=== PATIENT | female | born 1970 | race Caucasian/White ===

== ENCOUNTER → 2020-05-20 | Outpatient (CLI) | payer MEDICARE ==
[~2020-05-20] MED LIST: PREDNISONE20 MG PO
== END ==
LOC: EXRD 15:37
DX: J44.9 Chronic obstructive pulmonary disease, unspecified (principal); J98.11 Atelectasis
CPT/HCPCS: 71046

== ENCOUNTER 2020-11-30 01:39 | Emergency (ER) | payer MEDICARE ==
[2020-11-30 02:12] LABS: HEMOGLOBIN 14.5 gm/dl (12.3-15.3); RED BLOOD COUNT 4.42 M/UL (4.00-5.10); WHITE BLOOD COUNT 17.8 K/UL (4.5-11.0)
[2020-11-30 02:39] LABS: BUN/CREATININE RATIO 9 (0-10)
[2020-11-30] MEDS ORDERED: ZOFRAN ODT 4 MG4 MG PO (04:42)
[2020-11-30] MEDS ORDERED: LODINE CAP 300300 MG PO (04:42)
[2020-11-30] MEDS ORDERED: HYDROCODON-ACE1 EAC4 PO (05:08)
== END 2020-11-30 05:23 | disposition home or self-care (01) ==
LOC: ER1 01:39
PROVIDERS: Physician Assistant
DX: K85.90 Acute pancreatitis without necrosis or infection, unspecified (principal); J44.9 Chronic obstructive pulmonary disease, unspecified; E78.5 Hyperlipidemia, unspecified; I10 Essential (primary) hypertension; E11.40 Type 2 diabetes mellitus with diabetic neuropathy, unspecified; Z79.4 Long term (current) use of insulin; M06.9 Rheumatoid arthritis, unspecified
CPT/HCPCS: 80053; 81001; 82150; 82550; 82553; 83605; 83690; 84484; 84703; 85025; 93005; 96374; 96375; 99285; J1885; J2405; Q9967

== ENCOUNTER 2021-11-28 18:43 | Inpatient (IN) | payer MEDICARE ==
[~2021-11-28] VITALS: Ht 162.6 cm; Wt 98.0 kg
[~2021-11-28 18:43] MED LIST changes: +HYDROCODON-ACE1 EAC4 PO; +LODINE CAP 300300 MG PO; +ZOFRAN ODT 4 MG4 MG PO
[2021-11-28 20:30] LABS: HEMOGLOBIN 13.5 gm/dl (12.3-15.3); RED BLOOD COUNT 4.13 M/UL (4.00-5.10); WHITE BLOOD COUNT 18.2 K/UL (4.5-11.0)
[2021-11-28 20:55] LABS: BUN/CREATININE RATIO 5 (0-10)
[2021-11-29 02:54] LABS: HEMOGLOBIN 13.7 gm/dl (12.3-15.3); RED BLOOD COUNT 4.22 M/UL (4.00-5.10); WHITE BLOOD COUNT 16.5 K/UL (4.5-11.0)
[2021-11-29 03:08] LABS: BUN/CREATININE RATIO 5 (0-10)
[2021-11-29] MEDS ORDERED: ACETAMINOPHEN-1 EAC1 PO (10:13)
[2021-11-29] MEDS ORDERED: TIZANIDINE HCL4 MG PO (10:13)
[2021-11-29] MEDS ORDERED: DIAZEPAM5 MG PO ×2 (10:14→10:15)
[2021-11-29] MEDS ORDERED: CREON DR 24,001 EACH PO (10:16)
[2021-11-29] MEDS ORDERED: ESCITALOPRAM OX20 MG PO (10:16)
[2021-11-29] MEDS ORDERED: MOTEGRITY2 MG PO (10:16)
[2021-11-29] MEDS ORDERED: QUETIAPINE FUM400 MG PO (10:17)
[2021-11-29] MEDS ORDERED: CLOPIDOGREL75 MG PO (10:18)
[2021-11-29] MEDS ORDERED: PROVENTIL HFA6.7 GM INH (10:18)
[2021-11-29] MEDS ORDERED: HUMULIN R100 UNIT/1 INJ (10:19)
[2021-11-29] MEDS ORDERED: GABAPENTIN800 MG PO (10:19)
[2021-11-29] MEDS ORDERED: ANORO ELLIPTA1 EACH INH (10:20)
[2021-11-29] MEDS ORDERED: PROMETHAZI6.25 MG/5 PO (10:22)
[2021-11-29] MEDS ORDERED: LOSARTAN POTASS50 MG PO (10:23)
[2021-11-29] MEDS ORDERED: LANTUS SOL100 UNIT/1 SQ (10:24)
[2021-11-29] MEDS ORDERED: HYDROXYCHLOROQ200 MG PO (10:24)
[2021-11-29] MEDS ORDERED: FLONASE 0.05% N16 GM (10:25)
[2021-11-29] MEDS ORDERED: METOPROLOL SUCC50 MG PO (10:26)
[2021-11-29] MEDS ORDERED: DICLOFENAC SODI50 MG PO (10:27)
[2021-11-29] MEDS ORDERED: FLOVENT 220.1 GM/INH INH (10:28)
[2021-11-29] MEDS ORDERED: IPRAT-ALBUT 0.5-3 ML INH (10:29)
[2021-11-29] MEDS ORDERED: BISACODYL5 MG PO (10:30)
[2021-11-29] MEDS ORDERED: CETIRIZINE HCL10 MG PO (10:31)
[2021-11-29] MEDS ORDERED: KRILL OIL500 MG PO (10:31)
[2021-11-29] MEDS ORDERED: VITAMIN E90 M1 PO (10:31)
[2021-11-29] MEDS ORDERED: MAGNESIUM OXID400 M1 PO (10:32)
[2021-11-29] MEDS ORDERED: POTASSIUM GLUCO99 MG PO (10:32)
[2021-11-29] MEDS ORDERED: RISAQUAD PO (10:33)
[2021-11-29] MEDS ORDERED: VITAMIN D3125 MCG PO (10:33)
[2021-11-30 02:16] LABS: HEMOGLOBIN 12.9 gm/dl (12.3-15.3); RED BLOOD COUNT 4.1 M/UL (4.00-5.10); WHITE BLOOD COUNT 16.7 K/UL (4.5-11.0)
[2021-11-30 02:45] LABS: BUN/CREATININE RATIO 6 (0-10)
[2021-12-01 04:11] LABS: BUN/CREATININE RATIO 6 (0-10)
[2021-12-02 02:36] LABS: WHITE BLOOD COUNT 13.6 K/UL (4.5-11.0)
[2021-12-02 02:41] LABS: HEMOGLOBIN 10.7 gm/dl (12.3-15.3); RED BLOOD COUNT 3.36 M/UL (4.00-5.10)
[2021-12-02 03:03] LABS: BUN/CREATININE RATIO 6 (0-10)
== END 2021-12-02 18:55 | disposition home or self-care (01) | DRG 439 ==
LOC: ER1 18:43 → M/S 11-29 00:07 → CDU 11-29 00:07 → M/S 11-29 02:37
PROVIDERS: Internal Medicine Infectious Disease; Physician Assistant; ADMIT Student in an Organized Health Care Education/Training Program
DX: K85.90 Acute pancreatitis without necrosis or infection, unspecified (principal); E87.1 Hypo-osmolality and hyponatremia; E83.42 Hypomagnesemia; Z20.822 Contact with and (suspected) exposure to COVID-19; E11.43 Type 2 diabetes mellitus with diabetic autonomic (poly)neuropathy; K21.9 Gastro-esophageal reflux disease without esophagitis; F31.9 Bipolar disorder, unspecified; K31.84 Gastroparesis; I10 Essential (primary) hypertension; K59.09 Other constipation; F41.9 Anxiety disorder, unspecified; K76.0 Fatty (change of) liver, not elsewhere classified; F17.210 Nicotine dependence, cigarettes, uncomplicated; F32.A Depression, unspecified; Z79.4 Long term (current) use of insulin; Z90.49 Acquired absence of other specified parts of digestive tract
CPT/HCPCS: 36415; 71045; 80048; 80053; 80061; 81001; 82550; 82553; 82962; 83605; 83690; 83735; 84484; 85025; 87086; 94640; 94760; 96374; 96375; 99285; C9113; J1170; J1650; J2270; J2405; J3475; Q9967